=== PATIENT | male | born 1990 | race Caucasian/White ===

== ENCOUNTER 2017-02-21 15:19 | Emergency (ER) | payer SELFPAY ==
--- NOTE | ~2017-02-21 | ER ---
PAT[facility]: [facility] AGE: 27 Y [address] ROOM: [place] [id number] LOCATION: [facility] ADMIT DATE: 02/21/2017 ER/Outpatient Report DISCHARGE DATE: 02/21/2017 FAMILY PHYSICIAN: Jorge A Zimmer MD ATTENDING PHYSICIAN: Antonia Kelley Time of Arrival: 1519 hours. Time of evaluation: 1530 hours. CHIEF COMPLAINT: Right shoulder pain. HISTORY OF PRESENT ILLNESS: This is a 27-year-old male, who presents to the ER. He states he injured his right shoulder 4 days ago. He states that he was weed eating for an extended amount of time and feels like he may have hurt it that way. He states that he has had a rotator cuff surgery in the past. He denies other problems at this time. He has had troubles with his rotator cuff in the past but he has not had surgery. ALLERGIES: PENICILLIN. MEDICATIONS: None. PAST MEDICAL HISTORY: Rotator cuff problems. PAST SURGICAL HISTORY: None. SOCIAL HISTORY: Smokes 1 pack a day for last 10 years. Drinks alcohol occasionally. REVIEW OF SYSTEMS: CONSTITUTIONAL: Denies any change in weight or fatigue. MUSCULOSKELETAL: He is complaining of right shoulder pain. HEME: No easy bruising or bleeding. SKIN: No lesions or rashes. PHYSICAL EXAMINATION: VITAL SIGNS: Height 6 feet stated, weight 93.2 kg taken, blood pressure is 131/69, pulse 73, respirations 18, temperature 98 degrees tympanically, saturations 96% on room air. Phyllis Coma Score is 15. PATIENT'S NAME: [facility] AGE: 27 Y [address] ROOM: [place] [address] LOCATION: [facility] ADMIT DATE: 02/21/2017 ER/Outpatient Report DISCHARGE DATE: 02/21/2017 FAMILY PHYSICIAN: Jorge A Zimmer MD ATTENDING PHYSICIAN: Antonia Kelley GENERAL: Alert, calm, well-developed male, in no acute distress. The patient is text messaging on his phone and does shift his weight using all of his pressure onto his right upper extremity without difficulty. EXTREMITIES: No clubbing or cyanosis. He does seem to have some pain with range of motion of his right shoulder. He has minimal pain with palpation over the anterior and posterior portion of the shoulder and up into the neck as well. NEURO: Cranial nerves 2 through 12 grossly intact. Gait is steady without assistance. LABORATORY DATA AND X-RAYS: None were done. X-rays of the right shoulder showed no fracture, no dislocation. IMPRESSION: Right shoulder pain, most likely due to muscular strain. ASSESSMENT AND PLAN: We did give the patient reassurance. We did offer him an arm sling but he refused that. We will have him ice it. Tylenol and ibuprofen as needed for pain control, and he should follow up with his primary care physician for followup care. The patient understands and agrees with care. ALEIDA FAUSTIN PA-C FOR MD RADHA BARNETT/ana /[id number] d: 02/21/17 1848 t: 03/02/17 0757, OUTPATIENT REPORT
== END 2017-02-21 15:54 | disposition disaster alternative care site (69) ==
LOC: GMED 15:19
DX: M25.511 Pain in right shoulder (principal); F17.210 Nicotine dependence, cigarettes, uncomplicated; Z88.0 Allergy status to penicillin